=== PATIENT | female | born 1995 | race African-American/Black ===

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

== ENCOUNTER → 2017-01-23 13:00 | Outpatient (CLI) | payer MEDICAID ==
[2017-01-23 13:31] LABS: BASOPHILS 0.1 % (0-2); EOSINOPHILS 1.4 % (0-7); HEMOGLOBIN 10.6 g/dL (12-16); IMMATURE GRANULOCYTES 0.1 % (0-5); LYMPHOCYTES 25.8 % (15-50); MCH 29.4 pg (26.0-34.0); MCHC 34.2 g/dL (31.0-37.0); MCV 85.9 fL (80.0-100.0); MEAN PLATELET VOLUME 8.1 fL (7.4-10.4); MONOCYTES 8.4 % (2-11); NEUTROPHILS 64.2 % (40-80); PLATELET COUNT 257 10x3/uL (130-400); RBC 3.61 10x6/uL (4.00-5.40); RDW 12.9 % (11.5-14.5); WBC 7.1 10x3/uL (4.8-10.8)
[2017-01-23 13:51] LABS: ALBUMIN 2.3 g/dL (3.4-5.0); ALKALINE PHOSPHATASE 88 U/L (46-116); ALT (SGPT) 14 U/L (10-68); BILIRUBIN - TOTAL 0.17 mg/dL (0.2-1.3); CALC OSMOLALITY 272 mosm/kg (275-300); CALCIUM 8.2 mg/dL (8.5-10.1); CARBON DIOXIDE 22.9 mmol/L (21.0-32.0); CHLORIDE - SERUM 107 mmol/L (98-107); CREATININE - SERUM 0.4 mg/dL (0.6-1.3); GLUCOSE 91 mg/dL (74-106); POTASSIUM - SERUM 3.5 mmol/L (3.5-5.1); PROTEIN - SERUM 6.7 g/dL (6.4-8.2); SODIUM 138 mmol/L (136-145); UREA NITROGEN 5 mg/dL (7-18); eGFR NON AFRICAN AMERICAN > 90 mL/min (90-120)
== END | disposition home or self-care (01) ==
LOC: D.LDO 13:00 → D.ER 13:00 → EDSTATUS 16:21
PROVIDERS: Family Medicine
DX: O26.893 Other specified pregnancy related conditions, third trimester (principal); Z3A.28 28 weeks gestation of pregnancy; W19.XXXA Unspecified fall, initial encounter; Y93.89 Activity, other specified; Y92.028 Other place in mobile home as the place of occurrence of the external cause; R42 Dizziness and giddiness

== ENCOUNTER → 2017-04-03 19:59 | Outpatient (CLI) | payer MEDICAID ==
[2017-04-03 21:48] LABS: BASOPHILS 0.1 % (0-2); EOSINOPHILS 1.7 % (0-7); HEMATOCRIT 31.6 % (36.0-48.0); HEMOGLOBIN 10.5 g/dL (12-16); IMMATURE GRANULOCYTES 0.5 % (0-5); LYMPHOCYTES 30.4 % (15-50); MCH 27.7 pg (26.0-34.0); MCHC 33.2 g/dL (31.0-37.0); MCV 83.4 fL (80.0-100.0); MEAN PLATELET VOLUME 9.4 fL (7.4-10.4); MONOCYTES 7.2 % (2-11); NEUTROPHILS 60.1 % (40-80); PLATELET COUNT 243 10x3/uL (130-400); RBC 3.79 10x6/uL (4.00-5.40); RDW 13.2 % (11.5-14.5); WBC 9.7 10x3/uL (4.8-10.8)
[2017-04-03 22:24] LABS: UDS - AMPHET NEGATIVE QUAL (NEGATIVE); UDS - BARB NEGATIVE QUAL (NEGATIVE); UDS - BENZO NEGATIVE QUAL (NEGATIVE); UDS - COCAINE NEGATIVE QUAL (NEGATIVE); UDS - OPIATE NEGATIVE QUAL (NEGATIVE); UDS - PCP NEGATIVE QUAL (NEGATIVE); UDS - THC NEGATIVE QUAL (NEGATIVE)
[2017-04-03 22:27] LABS: APPEARANCE CLEAR (CLEAR); BACTERIA FEW /hpf (NONE SEEN); BILIRUBIN NEGATIVE (NEGATIVE); COLOR YELLOW (YELLOW); EPITHELIAL CELLS 0-5 /hpf (0-5); GLUCOSE NEGATIVE (NEGATIVE); KETONE NEGATIVE (NEGATIVE); NITRITE NEGATIVE (NEGATIVE); PROTEIN NEGATIVE (NEGATIVE); UROBILINOGEN NORMAL (NORMAL); WHITE CELLS - URINE OCC /hpf (0-5)
== END | disposition home or self-care (01) ==
LOC: D.LDO 19:59
PROVIDERS: Obstetrics & Gynecology
DX: Z34.83 Encounter for supervision of other normal pregnancy, third trimester (principal); Z3A.38 38 weeks gestation of pregnancy; W19.XXXA Unspecified fall, initial encounter

== ENCOUNTER 2017-09-22 05:17 | Emergency (ER) | payer MEDICAID ==
[~2017-09-22] VITALS: Ht 167.6 cm; Wt 90.7 kg
[2017-09-22 05:19] VITALS: Ht 167.6 cm; Wt 90.7 kg
[2017-09-22 05:50] LABS: UDS - AMPHET NEGATIVE QUAL (NEGATIVE); UDS - BARB NEGATIVE QUAL (NEGATIVE); UDS - BENZO NEGATIVE QUAL (NEGATIVE); UDS - COCAINE NEGATIVE QUAL (NEGATIVE); UDS - OPIATE NEGATIVE QUAL (NEGATIVE); UDS - PCP NEGATIVE QUAL (NEGATIVE); UDS - THC POSITIVE QUAL (NEGATIVE)
[2017-09-22 05:54] LABS: BASOPHILS 0.3 % (0-2); EOSINOPHILS 3.9 % (0-7); HEMATOCRIT 37.9 % (36.0-48.0); HEMOGLOBIN 12.5 g/dL (12-16); IMMATURE GRANULOCYTES 0.2 % (0-5); LYMPHOCYTES 32.1 % (15-50); MCH 26.5 pg (26.0-34.0); MCV 80.3 fL (80.0-100.0); MEAN PLATELET VOLUME 8.4 fL (7.4-10.4); NEUTROPHILS 56.5 % (40-80); RBC 4.72 10x6/uL (4.00-5.40); RDW 15.1 % (11.5-14.5); WBC 5.9 10x3/uL (4.8-10.8)
[2017-09-22 06:02] LABS: HCG SERUM NEGATIVE (NEGATIVE)
[2017-09-22 06:03] LABS: PLATELET COUNT 319 10x3/uL (130-400)
[2017-09-22 06:17] LABS: CALC OSMOLALITY 278 mosm/kg (275-300); CALCIUM 9.3 mg/dL (8.5-10.1); CARBON DIOXIDE 27.4 mmol/L (21.0-32.0); CHLORIDE - SERUM 103 mmol/L (98-107); CREATININE - SERUM 0.7 mg/dL (0.6-1.3); GLUCOSE 91 mg/dL (74-106); POTASSIUM - SERUM 3.8 mmol/L (3.5-5.1); SODIUM 139 mmol/L (136-145); THYROID STIMULATING HORMONE 0.86 uIU/mL (0.36-3.74); UREA NITROGEN 14 mg/dL (7-18); eGFR NON AFRICAN AMERICAN > 90 mL/min (90-120)
[2017-09-22] MEDS ORDERED: CATAPRES0.2 MG PO (08:12)
[2017-09-22 08:34] VITALS: BP 124/80
== END 2017-09-22 08:25 | disposition home or self-care (01) ==
LOC: D.ER 05:17
PROVIDERS: Family Medicine
DX: F32.9 Major depressive disorder, single episode, unspecified (principal); R45.851 Suicidal ideations; F17.200 Nicotine dependence, unspecified, uncomplicated

== ENCOUNTER 2017-10-05 20:34 | Emergency (ER) | payer MEDICAID ==
[~2017-10-05] VITALS: Ht 167.6 cm; Wt 104.5 kg
[~2017-10-05 20:34] MED LIST: CATAPRES0.2 MG PO
[2017-10-05 20:44] VITALS: Ht 167.6 cm; Wt 104.5 kg
[2017-10-05 21:32] LABS: APPEARANCE CLEAR (CLEAR); BILIRUBIN NEGATIVE (NEGATIVE); COLOR YELLOW (YELLOW); GLUCOSE NEGATIVE (NEGATIVE); KETONE NEGATIVE (NEGATIVE); NITRITE NEGATIVE (NEGATIVE); PROTEIN NEGATIVE (NEGATIVE); UROBILINOGEN NORMAL (NORMAL)
[2017-10-05 21:34] LABS: BACTERIA FEW /hpf (NONE SEEN); EPITHELIAL CELLS 0-5 /hpf (0-5); HCG URINE NEGATIVE (NEGATIVE); RED CELLS - URINE OCC /hpf (0-5); WHITE CELLS - URINE 0-5 /hpf (0-5)
[2017-10-06 00:42] VITALS: BP 123/67
== END 2017-10-06 00:46 | disposition home or self-care (01) ==
LOC: D.ER 20:34
PROVIDERS: Family Medicine
DX: N76.0 Acute vaginitis (principal); B96.89 Other specified bacterial agents as the cause of diseases classified elsewhere; A64 Unspecified sexually transmitted disease; F17.200 Nicotine dependence, unspecified, uncomplicated

== ENCOUNTER 2017-11-21 14:03 | Emergency (ER) | payer MEDICAID ==
[~2017-11-21] VITALS: Ht 167.6 cm; Wt 102.3 kg
[2017-11-21 14:05] VITALS: Ht 167.6 cm; Wt 102.3 kg
[2017-11-21] MEDS ORDERED: PHENERGAN25 M1 PO (15:57)
[2017-11-21] MEDS ORDERED: TYLENOL W/CODEI1 TAB PO (15:57)
[2017-11-21 16:19] VITALS: BP 118/72
== END 2017-11-21 16:22 | disposition home or self-care (01) ==
LOC: D.ER 14:03
DX: G43.909 Migraine, unspecified, not intractable, without status migrainosus (principal)

== ENCOUNTER 2018-01-15 02:14 | Emergency (ER) | payer MEDICAID ==
[~2018-01-15] VITALS: Ht 167.6 cm; Wt 100.0 kg
[~2018-01-15 02:14] MED LIST changes: +PHENERGAN25 M1 PO; +TYLENOL W/CODEI1 TAB PO
[2018-01-15 02:18] VITALS: Ht 167.6 cm; Wt 100.0 kg
[2018-01-15] MEDS ORDERED: KEFLEX500 MG PO (02:35)
[2018-01-15] MEDS ORDERED: NORCO 7.5/325 T1 TA1 PO (02:36)
[2018-01-15 02:45] LABS: APPEARANCE CLOUDY (CLEAR); COLOR YELLOW (YELLOW)
[2018-01-15 02:46] LABS: BACTERIA MODERATE /hpf (NONE SEEN); BILIRUBIN NEGATIVE (NEGATIVE); EPITHELIAL CELLS 0-5 /hpf (0-5); GLUCOSE NEGATIVE (NEGATIVE); KETONE NEGATIVE (NEGATIVE); NITRITE NEGATIVE (NEGATIVE); PROTEIN TRACE mg/dL (NEGATIVE); RED CELLS - URINE 0-5 /hpf (0-5); SPECIFIC GRAVITY 1.015 (1.005-1.020); UROBILINOGEN NORMAL (NORMAL); WHITE CELLS - URINE >50 /hpf (0-5)
[2018-01-15 02:51] LABS: UDS - AMPHET NEGATIVE QUAL (NEGATIVE); UDS - BARB NEGATIVE QUAL (NEGATIVE); UDS - BENZO NEGATIVE QUAL (NEGATIVE); UDS - COCAINE NEGATIVE QUAL (NEGATIVE); UDS - OPIATE NEGATIVE QUAL (NEGATIVE); UDS - PCP NEGATIVE QUAL (NEGATIVE); UDS - THC POSITIVE QUAL (NEGATIVE)
[2018-01-15 03:00] VITALS: BP 110/73
== END 2018-01-15 03:02 | disposition home or self-care (01) ==
LOC: D.ER 02:14
PROVIDERS: Emergency Medicine
DX: J02.9 Acute pharyngitis, unspecified (principal); F17.200 Nicotine dependence, unspecified, uncomplicated

== ENCOUNTER 2020-09-13 21:09 | Emergency (ER) | payer MEDICAID ==
[~2020-09-13] VITALS: Ht 167.6 cm; Wt 109.1 kg
[~2020-09-13 21:09] MED LIST changes: +KEFLEX500 MG PO; +NORCO 7.5/325 T1 TA1 PO
[2020-09-13 21:16] VITALS: BP 133/79; Ht 167.6 cm; Wt 109.1 kg
[2020-09-13 22:27] LABS: HCG URINE NEGATIVE (NEGATIVE)
== END 2020-09-13 22:27 | disposition left against medical advice (07) ==
LOC: D.ER 21:09
PROVIDERS: Family Medicine
DX: R51.9 Headache, unspecified (principal); M54.2 Cervicalgia